=== PATIENT | male | born 1935 | race Caucasian/White ===

== ENCOUNTER 2018-11-28 08:38 | Day surgery (SDC) | payer MEDICARE, BC ==
[2018-11-27 11:20] LABS: BASOPHILS # (AUTO) 0.1 X10'3 (0-0.2); BASOPHILS % (AUTO) 0.9 % (0-1); EOSINOPHILS # (AUTO) 0.2 X10'3 (0-0.9); EOSINOPHILS % (AUTO) 2.3 % (0-6); HEMATOCRIT 46.4 % (42.0-52.0); HEMOGLOBIN 15.4 g/dl (14.0-17.9); LYMPHOCYTES % (AUTO) 30.2 % (21-51); MEAN CORPUSCULAR HEMOGLOBIN 28.4 PG (27.0-31.0); MEAN CORPUSCULAR HGB CONC 33.3 g/dL (33.0-36.5); MEAN CORPUSCULAR VOLUME 85.3 FL (78-98); MEAN PLATELET VOLUME 9.4 FL (7.4-10.4); MONOCYTES # (AUTO) 0.8 X10'3 (0-0.9); MONOCYTES % (AUTO) 12.7 % (2-12); NEUTROPHILS # (AUTO) 3.6 X10'3 (1.8-7.7); NEUTROPHILS % (AUTO) 53.9 % (42-75); PLATELET COUNT 151 X10'3 (140-440); RED BLOOD COUNT 5.44 X10'6 (4.70-6.10); RED CELL DISTRIBUTION WIDTH 18.6 % (11.5-14.5); WHITE BLOOD COUNT 6.6 X10'3 (4.5-11.0)
[2018-11-27 11:30] LABS: ALBUMIN 4.1 G/DL (3.4-5.0); ANION GAP 7 (8-16); BLOOD UREA NITROGEN 16 MG/DL (7-18); BUN/CREATININE RATIO 12.7 (5.4-32.0); CALCIUM 9.6 MG/DL (8.5-10.1); CHLORIDE 106 MMOL/L (99-107); CREATININE 1.26 MG/DL (0.60-1.10); GLUCOSE 119 MG/DL (70-104); SODIUM 141 MMOL/L (135-145); TOTAL CARBON DIOXIDE 28.4 MMOL/L (24-32); eGFR 55 ML/MIN
[2018-11-27 11:32] LABS: PARTIAL THROMBOPLASTIN TIME 30 SECONDS (22-32)
[2018-11-27 11:58] LABS: ANISOCYTOSIS 2+; PLATELET ESTIMATE NORMAL
[2018-11-28] VITALS (12 sets, daily range): BP systolic 117–143; BP diastolic 54–89
[~2018-11-28] VITALS: Ht 167.6 cm; Wt 84.5 kg
[2018-11-28] MEDS ORDERED: PANT-47 PO (09:14)
[2018-11-28] MEDS ORDERED: LEVO112T52 PO (09:14)
[2018-11-28] MEDS ORDERED: SIMV10TA2 PO (09:14)
[2018-11-28] MEDS ORDERED: FERR-119 PO (09:14)
[2018-11-28] MEDS ORDERED: MULT-955 PO (09:14)
[2018-11-28] MEDS ORDERED: LOSA25TA96 PO (09:14)
[2018-11-28] MEDS ORDERED: FLO0.4C PO (09:14)
[2018-11-28] MEDS ORDERED: HYDR12.55 PO (09:14)
[2018-11-28] MEDS ORDERED: LIDOcaine/PRILOcaine 5gm cream TP ONE (09:30)
[2018-11-28] MEDS ORDERED: diphenhydrAMINE 25mg capsule PO PRN (09:45)
[2018-11-28] MEDS ORDERED: LORazepam 0.5 MG tablet PO PRN (09:45)
[2018-11-28] MEDS ORDERED: verapamil 2.5 mg/ml inj IV ONE (10:54)
[2018-11-28] MEDS ORDERED: midazolam 2 mg/2 ml injection ONE (10:54)
[2018-11-28] MEDS ORDERED: heparin 1,000unit/ml 10ml vial 10 ML ONE (10:55)
[2018-11-28] MEDS ORDERED: LIDOcaine 1% (10mg/ml)w/preservative injection 20ml MDV ONE (10:55)
[2018-11-28] MEDS ORDERED: iohexol 350 MG/ML 50ML vial IV ONE ×2 (10:55→12:36)
[2018-11-28] MEDS ORDERED: fentaNYL/PF 50MCG/1 ML 2ML syringe ONE (10:55)
[2018-11-28] MEDS ORDERED: iohexol 350MG/ML 100ml bottle IV ONE (10:55)
[2018-11-28] MEDS ORDERED: nitroGLYCERIN-Tridil 50MG/D5W 250 ML IV ONE (10:55)
[2018-11-28 13:00] LABS: ISTAT Hct MIX 43 %PCV (42-52); ISTAT O2 SATURATION MIX VENOUS 72 % (60-80); ISTAT SOURCE MIX
[2018-11-28 13:00] LABS: ISTAT HGB ART 14.6 g/dl (14.0-18.0); ISTAT Hct ART 43 %PCV (42-52); ISTAT O2 SATURATION ARTERIAL 98 % (95-98); ISTAT SOURCE ART
[2018-11-28] MEDS ORDERED: normal saline 1000ml 1,000 ML IV ONE (13:55)
[2018-11-28] MEDS ORDERED: HYDROcodone/acetaminophen 10/325mg tab PO ONE (16:30)
[2018-11-28] MEDS ORDERED: morphine 2 MG/ML inj. syringe IV PRN (16:30)
== END 2018-11-28 19:50 | disposition home or self-care (01) ==
LOC: SSTAY O 08:38
PROVIDERS: ATTEND Internal Medicine Cardiovascular Disease
DX: I35.0 Nonrheumatic aortic (valve) stenosis (principal); I25.10 Atherosclerotic heart disease of native coronary artery without angina pectoris; I10 Essential (primary) hypertension; E78.5 Hyperlipidemia, unspecified; F17.200 Nicotine dependence, unspecified, uncomplicated; Z72.89 Other problems related to lifestyle; Z79.890 Hormone replacement therapy; Z79.01 Long term (current) use of anticoagulants; Z79.899 Other long term (current) drug therapy; Z88.0 Allergy status to penicillin; Z98.890 Other specified postprocedural states; Z82.49 Family history of ischemic heart disease and other diseases of the circulatory system
CPT/HCPCS: 36415; 80048; 82803; 85014; 85025; 85610; 85730; 93460; 93567; 99152; 99153; C1769; C1894; J1644; J2001; J2250; J3010; J7030; Q0163; Q9967; A4620; A5120; A6258; C1760; J3490